=== PATIENT | male | born 1945 | race Caucasian/White ===

== ENCOUNTER → 2018-08-14 | Outpatient (CLI) | payer MEDICARE, BC ==
[~2018-08-14] MED LIST: E-Z-GAS II EFFERVESCENT PACKET (SODIUM BICARB./CITRIC ACID/SIMETHICONE) As Ordered ONE; E-Z-HD 98% w/w 340GM SUSP BTL As Ordered ONE; E-Z-PAQUE 96% w/w SUSP 176GM BTL As Ordered ONE
--- NOTE | 2018-08-14 17:34 | REP ---
Esophagram The procedure was performed under the direct supervision of Dr. Mercer. The images were reviewed with Dr. Mercer. A single view PA chest x-ray is submitted as a communication engineer film. The superior mediastinal structures are midline. The heart size is within normal limits. The lungs are clear. There is a metallic density overlying the right chest. There is an anterior cervical fixation plate extending from C5-C7. Liquid barium and gas producing granules were given in the erect position as well as liquid barium in the prone oblique positions in order to perform a double contrast esophagram examination. The oral and pharyngeal stages of deglutition are unremarkable. There are esophageal transport there are tertiary waves demonstrated. There is no esophagitis, stricture, mucosal ring or hiatal hernia. Gastroesophageal reflux is not demonstrated on this examination. Impression: There are tertiary waves demonstrated. Otherwise, unremarkable double contrast esophagram examination. 0.6 minutes of fluoro time was utilized for this procedure. Reviewed by DANNY Metzger 08/14/2018 04:12 P Electronically Signed by Montez Mercer MD 08/14/2018 05:24 P
== END ==
LOC: M RAD 10:11
PROVIDERS: ATTEND Otolaryngology
DX: R13.10 Dysphagia, unspecified (principal)

== ENCOUNTER 2024-07-27 08:09 | Day surgery (SDC) | payer MEDICARE, OTHER ==
[~2024-07-27] VITALS: Ht 172.7 cm; Wt 64.0 kg
[~2024-07-27 08:09] MED LIST changes: +DONE10TA90 PO; -E-Z-GAS II EFFERVESCENT PACKET (SODIUM BICARB./CITRIC ACID/SIMETHICONE) As Ordered ONE; -E-Z-HD 98% w/w 340GM SUSP BTL As Ordered ONE; -E-Z-PAQUE 96% w/w SUSP 176GM BTL As Ordered ONE; +FERR325T3 PO; +LIDOCAINE 2% 100MG/5ML SDV (FOR ANES.) As Ordered ONE; +MAGN400T2 PO; +METF10004 PO; +MINO50CA4 PO; +NOXI1TAB PO; +TRAZ1TAB10 PO; +fentaNYL 100 MCG/2 ML INJECTION As Ordered ONE; +propofoL 200 MG/20 ML VIAL As Ordered ONE
[2024-07-27 09:41] VITALS: BP 112/63; O2SAT 100
== END 2024-07-27 09:47 | disposition home or self-care (01) ==
LOC: M OPP 08:09
PROVIDERS: ATTEND Surgery
DX: K44.9 Diaphragmatic hernia without obstruction or gangrene (principal); K29.80 Duodenitis without bleeding; R13.10 Dysphagia, unspecified; Z79.84 Long term (current) use of oral hypoglycemic drugs; Z79.899 Other long term (current) drug therapy; C18.9 Malignant neoplasm of colon, unspecified; Z87.891 Personal history of nicotine dependence